=== PATIENT | male | born 1955 | race Caucasian/White ===

== ENCOUNTER → 2020-01-20 | Outpatient (CLI) | payer MEDICARE, OTHER ==
[~2020-01-20] MED LIST: ALBU90OI6 INH; ANDROGEL1.25 GM TD; ASPI81CH PO; CLARITIN10 MG PO; DILT120 PO; FLUT1DIS2 INH; HYDR1TAB94; LISI20 PO; METF500 PO; NAPR500 PO; Omeprazole20 M1 PO; TERB24TC TOP; XARELTO20 MG PO
[2020-01-20 16:35] LABS: BASOPHILS ABSOLUTE AUTO 0.11 K/mm3 (0.00-0.23); BASOPHILS PERCENT AUTO 1 % (0-2); EOSINOPHILS ABSOLUTE AUTO 0.12 K/mm3 (0.00-0.68); EOSINOPHILS PERCENT AUTO 1 % (0-6); Hematocrit 52.4 % (37.0-53.0); Hemoglobin 18.7 g/dL (13.5-17.5); IMMATURE GRAN ABSOLUTE AUTO 0.05 K/mm3 (0.00-0.10); IMMATURE GRAN PERCENT AUTO 1 % (0-1); LYMPHOCYTES ABSOLUTE AUTO 2.12 K/mm3 (0.84-5.20); LYMPHOCYTES PERCENT AUTO 21 % (21-46); MONOCYTES ABSOLUTE AUTO 0.82 K/mm3 (0.16-1.47); MONOCYTES PERCENT AUTO 8 % (4-13); Mean Corpuscular HGB 33.9 pg (26.0-34.0); Mean Corpuscular HGB Conc 35.7 g/dL (31.5-36.5); Mean Corpuscular Volume 95 fL (80-100); Mean Platelet Volume 9.6 fL (9.1-12.4); NEUTROPHILS ABSOLUTE AUTO 6.84 K/mm3 (1.96-9.15); NEUTROPHILS PERCENT AUTO 68 % (41-73); Platelet Count 263 K/mm3 (150-400); RDW Coefficient Variation 12.7 % (11.7-14.2); RDW Standard Deviation 44.9 fL (35.1-46.3); Red Blood Cell Count 5.52 M/mm3 (4.30-5.90); White Blood Cell Count 10.06 K/mm3 (4.00-11.30)
[2020-01-20 16:48] LABS: Anion Gap 10 mmol/L (6-16); Blood Urea Nitrogen 17 mg/dL (8-24); Bun/Creatinine Ratio 13.3 (12.0-20.0); CO2, Blood 27 mmol/L (21-32); Calcium, Blood 9.5 mg/dL (8.5-10.1); Chloride, Blood 103 mmol/L (98-108); Creatinine, Blood 1.28 mg/dL (0.60-1.20); Glomerular Filtration Rate 57 (60-); Glucose, Blood 144 mg/dL (70-99); Potassium, Blood 3.5 mmol/L (3.5-5.5); Sodium, Blood 140 mmol/L (136-145)
[2020-01-20 16:49] LABS: Troponin I <0.017 ng/mL (0.000-0.040)
== END | disposition home or self-care (01) ==
LOC: LAB SHORT 16:31 → LAB EV 16:31
PROVIDERS: Family Medicine
DX: I48.91 Unspecified atrial fibrillation (principal)
CPT/HCPCS: 80048; 84484; 85025

== ENCOUNTER 2020-04-11 17:10 | Emergency (ER) | payer MEDICARE, OTHER ==
[~2020-04-11] VITALS: Ht 185.4 cm; Wt 145.2 kg
[2020-04-11 17:34] LABS: BASOPHILS ABSOLUTE AUTO 0.07 K/mm3 (0.00-0.23); BASOPHILS PERCENT AUTO 1 % (0-2); EOSINOPHILS ABSOLUTE AUTO 0.06 K/mm3 (0.00-0.68); EOSINOPHILS PERCENT AUTO 1 % (0-6); Hemoglobin 16.5 g/dL (13.5-17.5); IMMATURE GRAN ABSOLUTE AUTO 0.08 K/mm3 (0.00-0.10); IMMATURE GRAN PERCENT AUTO 1 % (0-1); LYMPHOCYTES ABSOLUTE AUTO 1.84 K/mm3 (0.84-5.20); LYMPHOCYTES PERCENT AUTO 23 % (21-46); MONOCYTES ABSOLUTE AUTO 0.64 K/mm3 (0.16-1.47); MONOCYTES PERCENT AUTO 8 % (4-13); Mean Corpuscular HGB 33.3 pg (26.0-34.0); Mean Corpuscular HGB Conc 34.4 g/dL (31.5-36.5); Mean Corpuscular Volume 97 fL (80-100); Mean Platelet Volume 9.4 fL (9.1-12.4); NEUTROPHILS PERCENT AUTO 67 % (41-73); Platelet Count 219 K/mm3 (150-400); RDW Coefficient Variation 13.8 % (11.7-14.2); RDW Standard Deviation 47.8 fL (35.1-46.3); Red Blood Cell Count 4.96 M/mm3 (4.30-5.90); White Blood Cell Count 8.09 K/mm3 (4.00-11.30)
[2020-04-11 17:55] LABS: Alanine Aminotransfer (ALT/SGP 36 U/L (12-78); Albumin, Blood 3.3 g/dL (3.4-5.0); Alk Phos 42 U/L (50-136); Anion Gap 8 mmol/L (6-16); Aspartate Aminotrans (AST/SGOT 27 U/L (12-37); Bilirubin, Total 0.9 mg/dL (0.1-1.0); Blood Urea Nitrogen 12 mg/dL (8-24); Bun/Creatinine Ratio 11.2 (12.0-20.0); CO2, Blood 25 mmol/L (21-32); Calcium, Blood 8.3 mg/dL (8.5-10.1); Chloride, Blood 103 mmol/L (98-108); Creatinine, Blood 1.07 mg/dL (0.60-1.20); Globulin, Blood 3.4 g/dL (2.2-4.0); Glomerular Filtration Rate >60 (60-); Glucose, Blood 171 mg/dL (70-99); Potassium, Blood 3.5 mmol/L (3.5-5.5); Sodium, Blood 136 mmol/L (136-145); Total Protein, Blood 6.7 g/dL (6.4-8.2)
[2020-04-11 18:07] LABS: Magnesium, Blood 1.2 mg/dL (1.6-2.4); Troponin I <0.015 ng/mL (0.000-0.040)
== END 2020-04-11 18:45 | disposition home or self-care (01) ==
LOC: ER 17:10
PROVIDERS: Emergency Medicine
DX: I48.91 Unspecified atrial fibrillation (principal); F10.10 Alcohol abuse, uncomplicated; E11.9 Type 2 diabetes mellitus without complications; K21.9 Gastro-esophageal reflux disease without esophagitis; J45.909 Unspecified asthma, uncomplicated; I10 Essential (primary) hypertension; Z87.891 Personal history of nicotine dependence; Z79.84 Long term (current) use of oral hypoglycemic drugs; Z79.01 Long term (current) use of anticoagulants; Z79.899 Other long term (current) drug therapy; Z91.013 Allergy to seafood; Y90.0 Blood alcohol level of less than 20 mg/100 ml
CPT/HCPCS: 80053; 83735; 84484; 85025; 93005; 93010; 96374; 99285-25; G0480

== ENCOUNTER 2020-04-27 23:19 | Emergency (ER) | payer MEDICARE, OTHER ==
[~2020-04-27] VITALS: Ht 185.4 cm; Wt 149.7 kg
[2020-04-28 00:27] LABS: BASOPHILS ABSOLUTE AUTO 0.12 K/mm3 (0.00-0.23); BASOPHILS PERCENT AUTO 1 % (0-2); EOSINOPHILS ABSOLUTE AUTO 0.18 K/mm3 (0.00-0.68); EOSINOPHILS PERCENT AUTO 2 % (0-6); Hematocrit 47.6 % (37.0-53.0); Hemoglobin 16.5 g/dL (13.5-17.5); IMMATURE GRAN ABSOLUTE AUTO 0.09 K/mm3 (0.00-0.10); IMMATURE GRAN PERCENT AUTO 1 % (0-1); LYMPHOCYTES ABSOLUTE AUTO 2.27 K/mm3 (0.84-5.20); LYMPHOCYTES PERCENT AUTO 21 % (21-46); MONOCYTES ABSOLUTE AUTO 0.68 K/mm3 (0.16-1.47); MONOCYTES PERCENT AUTO 6 % (4-13); Mean Corpuscular HGB 33.1 pg (26.0-34.0); Mean Corpuscular HGB Conc 34.7 g/dL (31.5-36.5); Mean Corpuscular Volume 96 fL (80-100); Mean Platelet Volume 9.4 fL (9.1-12.4); NEUTROPHILS ABSOLUTE AUTO 7.67 K/mm3 (1.96-9.15); NEUTROPHILS PERCENT AUTO 70 % (41-73); Platelet Count 260 K/mm3 (150-400); RDW Coefficient Variation 12.8 % (11.7-14.2); RDW Standard Deviation 45.6 fL (35.1-46.3); Red Blood Cell Count 4.98 M/mm3 (4.30-5.90); White Blood Cell Count 11.01 K/mm3 (4.00-11.30)
[2020-04-28 00:46] LABS: Troponin I <0.015 ng/mL (0.000-0.040)
[2020-04-28 00:47] LABS: Alanine Aminotransfer (ALT/SGP 37 U/L (12-78); Albumin, Blood 3.4 g/dL (3.4-5.0); Albumin/Globulin Ratio 0.8 (0.8-1.8); Alk Phos 44 U/L (50-136); Anion Gap 10 mmol/L (6-16); Aspartate Aminotrans (AST/SGOT 22 U/L (12-37); Bilirubin, Total 0.5 mg/dL (0.1-1.0); Blood Urea Nitrogen 11 mg/dL (8-24); Bun/Creatinine Ratio 13.1 (12.0-20.0); CO2, Blood 25 mmol/L (21-32); Calcium, Blood 9.2 mg/dL (8.5-10.1); Chloride, Blood 105 mmol/L (98-108); Creatinine, Blood 0.84 mg/dL (0.60-1.20); Glomerular Filtration Rate >60 (60-); Glucose, Blood 221 mg/dL (70-99); Potassium, Blood 3.4 mmol/L (3.5-5.5); Sodium, Blood 140 mmol/L (136-145); Total Protein, Blood 7.4 g/dL (6.4-8.2)
== END 2020-04-28 05:46 | disposition home or self-care (01) ==
LOC: ER 23:19
PROVIDERS: Physician Assistant
DX: I48.0 Paroxysmal atrial fibrillation (principal); E83.42 Hypomagnesemia; E87.6 Hypokalemia; Z79.84 Long term (current) use of oral hypoglycemic drugs; Z79.01 Long term (current) use of anticoagulants; Z91.013 Allergy to seafood
CPT/HCPCS: 36415; 80053; 83735; 84484; 85025; 93005; 93010; 99285-25; A9270

== ENCOUNTER → 2022-11-24 | Outpatient (CLI) | payer MEDICARE, OTHER | END | disposition home or self-care (01) | LOC: LAB SHORT 15:32 → LAB 15:32 | DX: E11.9 Type 2 diabetes mellitus without complications (principal) | CPT/HCPCS: 83036 ==

== ENCOUNTER 2023-06-28 06:37 | Day surgery (SDC) | payer MEDICARE, OTHER ==
[2023-06-28] VITALS (7 sets, daily range): BP systolic 101–140; BP diastolic 69–85
[~2023-06-28] VITALS: Ht 185.4 cm; Wt 143.0 kg
[~2023-06-28 06:37] MED LIST changes: +ACYC400 PO; +ATOR10 PO; +DILT180 PO; +ELIQUIS5 M2 PO; +GABA300 PO; +GLIP5 PO; +MAGNESIUM; +MONT10T PO; +MULVITA PO; +NITR.4SL SL; +PANT40 PO; +POTA10T PO; +ZYRTEC10 M2 PO
[2023-06-28] MEDS ORDERED: Aspir 8181 MG PO (07:19)
[2023-06-28] MEDS ORDERED: NS 250 ML IV ONE (07:26)
[2023-06-28] MEDS ORDERED: Verapamil HCL 2.5 MG/ML 2ML Injection ONE (07:26)
[2023-06-28] MEDS ORDERED: Heparin Sodium 1000 Units/ML 10ML MDV ONE ×2 (07:26→07:40)
[2023-06-28] MEDS ORDERED: NS 1,000 ML IV ONE ×2 (07:26→07:40)
[2023-06-28] MEDS ORDERED: FentaNYL Citrate 50 MCG/ML 2 ML Injection ONE (07:39)
[2023-06-28] MEDS ORDERED: Midazolam HCl 1MG / ML 2ML Vial ONE (07:39)
--- NOTE | 2023-06-28 10:20 | NUR ---
PT R RADIAL TR BAND FULLY DEFLATED. NO BLEEDING NOTED. VSS. DENIES QUESTIONS OR CONCERNS.
--- NOTE | 2023-06-28 10:32 | NUR ---
PT VERBALIZES UNDERSTANDING WRITTEN AND VERBAL INSTRUCTIONS. DENIES QUESTIONS OR CONCERNS. PT R RADIAL REMAINS C/D/I. VSS. CALL LIGHT WITHIN REACH.
--- NOTE | 2023-06-28 11:38 | NUR ---
PT AMBULATES TO RESTROOM AND BACK WITHOUT DIFF. PT DRESSES SELF WITHOUT ASSISTANCE. NADN. VSS. PT TR BAND REMOVED. NO BLEEDING OR HEMATOMA NOTED. CLOTH DOT AND SPLINT APPLIED. PT IV DC'D. CATH INTACT. PRESSURE DSG IN PLACE. NADN. PT DC TO HOME VIA WC BY FRIEND.
== END 2023-06-28 12:40 | disposition home or self-care (01) ==
LOC: MHTC 06:37
DX: R94.39 Abnormal result of other cardiovascular function study (principal); I48.91 Unspecified atrial fibrillation; J44.9 Chronic obstructive pulmonary disease, unspecified; E66.9 Obesity, unspecified; E11.9 Type 2 diabetes mellitus without complications; Z91.013 Allergy to seafood; Z91.048 Other nonmedicinal substance allergy status; Z79.01 Long term (current) use of anticoagulants; Z79.84 Long term (current) use of oral hypoglycemic drugs; Z79.899 Other long term (current) drug therapy; Z87.891 Personal history of nicotine dependence
CPT/HCPCS: 76937; 93454; 99152; C1769; C1887; C1894; J1644; J2250; J3010; J7030; J7050; Q9967

== ENCOUNTER 2023-09-19 05:44 | Day surgery (SDC) | payer MEDICARE, OTHER ==
[~2023-09-19 05:44] MED LIST changes: +Aspir 8181 MG PO
[2023-09-19 06:22] VITALS: BP 147/82
[2023-09-19] MEDS ORDERED: NS 0 ML IV ONE (06:25)
[2023-09-19 06:30] VITALS: BP 157/87
[2023-09-19 06:45] VITALS: BP 146/91
--- NOTE | 2023-09-19 06:59 | NUR ---
PT FOUND TO BE IN NSR UPON ARRIVAL. DR PHILLIPS NOTIFIED. DR PHILLIPS VISITED W/ PT AND DISCUSSED PLAN OF CARE. DR PHILLIPS TO TAKE CARE OF FOLLOW-UP APPOINTMENT. PT DENIES ANY COMPLAINTS AT THIS TIME. STS "I FEEL GOOD." DR PHILLIPS OK TO D/C. PT D/C HOME. PTs RIDE EN ROUTE. IV OUT. PT CHANGED. PT TAKEN TO LBY VIA WC.
== END 2023-09-19 23:05 | disposition home or self-care (01) ==
LOC: MHTC 05:44
DX: I48.0 Paroxysmal atrial fibrillation (principal); I48.92 Unspecified atrial flutter; R06.02 Shortness of breath; R94.39 Abnormal result of other cardiovascular function study; R07.89 Other chest pain; E11.9 Type 2 diabetes mellitus without complications; Z79.84 Long term (current) use of oral hypoglycemic drugs; Z91.013 Allergy to seafood; Z53.09 Procedure and treatment not carried out because of other contraindication
CPT/HCPCS: 93005; 93010; J7030

== ENCOUNTER 2023-11-09 13:58 | Day surgery (SDC) | payer MEDICARE, OTHER ==
[2023-11-09] VITALS (18 sets, daily range): BP systolic 101–156; BP diastolic 79–127
[~2023-11-09] VITALS: Ht 185.4 cm; Wt 143.0 kg
[~2023-11-09 13:58] MED LIST changes: -MAGNESIUM; +MAGNESIUM PO
[2023-11-09] MEDS ORDERED: NS 1,000 ML IV ONE (14:16)
[2023-11-09] MEDS ORDERED: FERSU300 PO (14:36)
[2023-11-09] MEDS ORDERED: OXYB5 PO (14:37)
[2023-11-09] MEDS ORDERED: ASCO500 PO (14:37)
[2023-11-09] MEDS ORDERED: Tambocor100 MG PO (14:37)
--- NOTE | 2023-11-09 16:20 | NUR ---
PT AWAKE AND CONVERSING APPROPRIATELY POST PROCEDURE, DENIES PAIN, VSS.
--- NOTE | 2023-11-09 16:39 | NUR ---
PT DRESSED SELF WITHOUT ISSUE, IV REMOVED-CANNULA INTACT. PT RECEIVED DISCHARGE INSTRUCTIONS, MED LIST AND AFTER CARE INSTRUCTIONS. PT LEFT FACILITY VIA W/C, CONDITION STABLE.
[2023-11-09] MEDS ORDERED: Propofol 10mg/ml 20 ml Vial (Procedural) IV ONE (17:41)
== END 2023-11-09 16:37 | disposition home or self-care (01) ==
LOC: MHTC 13:58
DX: I48.92 Unspecified atrial flutter (principal); I48.91 Unspecified atrial fibrillation; I48.0 Paroxysmal atrial fibrillation; J45.909 Unspecified asthma, uncomplicated; E11.9 Type 2 diabetes mellitus without complications; Z79.01 Long term (current) use of anticoagulants; Z79.84 Long term (current) use of oral hypoglycemic drugs; Z79.899 Other long term (current) drug therapy
CPT/HCPCS: 92960; 93005; 93010; J2704; J7030

== ENCOUNTER 2024-02-06 10:33 | Day surgery (SDC) | payer MEDICARE, OTHER ==
[~2024-02-06] VITALS: Ht 185.4 cm; Wt 136.0 kg
[~2024-02-06 10:33] MED LIST changes: +ASCO500 PO; +FERSU300 PO; +OXYB5 PO; +Tambocor100 MG PO
[2024-02-06] MEDS ORDERED: Lactated Ringer's 1,000 ML IV ONE ×2 (10:43→11:39)
[2024-02-06] MEDS ORDERED: OZEMPIC0.25 MG/02 (10:48)
[2024-02-06] MEDS ORDERED: DEPO-TESTO200 MG/1 M (10:59)
[2024-02-06] MEDS ORDERED: FentaNYL Citrate 50 MCG/ML 2 ML Injection ONE (11:59)
[2024-02-06] MEDS ORDERED: Midazolam HCL 1 MG/ML 5MLVIAL ONE (12:00)
[2024-02-06] MEDS ORDERED: propofoL 50 ML IV ONE ×2 (12:00→12:38)
[2024-02-06 13:43] VITALS: BP 133/85
== END 2024-02-06 13:38 | disposition home or self-care (01) ==
LOC: ORSCSDS 10:33
PROVIDERS: Surgery
PROC: 0DBM8ZX Excision of Descending Colon, Via Natural or Artificial Opening Endoscopic, Diagnostic (ICD-10-PCS; principal; 2024-02-06 12:00)
PROC: 0DB98ZX Excision of Duodenum, Via Natural or Artificial Opening Endoscopic, Diagnostic (ICD-10-PCS; principal; 2024-02-06 12:00)
PROC: 0DB78ZX Excision of Stomach, Pylorus, Via Natural or Artificial Opening Endoscopic, Diagnostic (ICD-10-PCS; principal; 2024-02-06 12:00)
PROC: 0DBH8ZX Excision of Cecum, Via Natural or Artificial Opening Endoscopic, Diagnostic (ICD-10-PCS; principal; 2024-02-06 12:00)
DX: D50.9 Iron deficiency anemia, unspecified (principal); R10.13 Epigastric pain; D12.4 Benign neoplasm of descending colon; D12.0 Benign neoplasm of cecum; K31.89 Other diseases of stomach and duodenum; K31.7 Polyp of stomach and duodenum; I10 Essential (primary) hypertension; E11.9 Type 2 diabetes mellitus without complications; J45.909 Unspecified asthma, uncomplicated; E66.9 Obesity, unspecified; Z68.39 Body mass index [BMI] 39.0-39.9, adult; Z79.899 Other long term (current) drug therapy; Z79.84 Long term (current) use of oral hypoglycemic drugs; K29.70 Gastritis, unspecified, without bleeding; K57.30 Diverticulosis of large intestine without perforation or abscess without bleeding
CPT/HCPCS: 82947; 88305; 88342; J2250; J2704; J3010; J7120